=== PATIENT | male | born 2000 | race African-American/Black ===

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

== ENCOUNTER 2022-02-08 19:13 | Emergency (ER) | payer MEDICAID ==
[~2022-02-08] VITALS: Ht 188 cm; Wt 136.0 kg
[2022-02-08 19:18] VITALS: BP 140/77
[2022-02-08] MEDS ORDERED: PREDNISONE 20MG TABLET PO ONE (22:00)
[2022-02-08] MEDS ORDERED: ALBUTEROL (0.083%) 2.5MG/3ML NEB HHN ONE (22:15)
[2022-02-09] MEDS ORDERED: P20 MT (00:03)
[2022-02-09] MEDS ORDERED: ALBU6.7H15 INH (00:03)
== END 2022-02-09 00:33 | disposition home or self-care (01) ==
LOC: ER 19:13
DX: J45.901 Unspecified asthma with (acute) exacerbation (principal)
CPT/HCPCS: 94640; 99283; J7512; Z7610; 94664